=== PATIENT | male | born 1970 ===

== ENCOUNTER 2025-02-09 14:08 | Outpatient (REF) | payer OTHER, SELFPAY ==
--- NOTE | ~2025-02-09 | XR_ITS ---
Exam: Three-view bilateral hands. TECHNIQUE: AP, oblique, lateral upper extremity bilateral INDICATION: Pain No prior FINDINGS: Right hand: Joint spaces are preserved. There are no osteophytes. There is a bilobed calcification adjacent to the ulnar aspect of the first metacarpal head. No other soft tissue calcific lesions are present. There is no joint diastases. Left hand: Joint spaces are preserved. There are no osteophytes. 2 Short linear densities are present in the soft tissues ulnar to the fifth metacarpal neck. There is focal rounded osteopenia in the radial side of the lunate. XR/XR Hand Bilat min 3v Impression: Right hand: Suspected calcific tendinitis involving the radial collateral ligament of the thumb with bilobed calcific density adjacent to the metacarpal head. Left hand: There is focal rounded osteopenia involving the radial aspect of lunate. Erosive change from an etiology such as rheumatoid arthritis is not ruled out. However, there are no other changes to suggest an inflammatory arthropathy. This could also represent a degenerative cyst. Electronically signed by: Lio Moreno MD 02/09/2025 04:08 PM EDT
== END 2025-02-09 14:09 | disposition home or self-care (01) ==
LOC: HO.HOSX 14:08
PROVIDERS: PCP Internal Medicine
DX: M65.341 Trigger finger, right ring finger (principal); M65.332 Trigger finger, left middle finger; M89.8X4 Other specified disorders of bone, hand
CPT/HCPCS: 20550; 73130; 99202; J1100; J2003

== ENCOUNTER 2025-02-09 14:08 | Outpatient (AMB) | payer OTHER, SELFPAY ==
--- NOTE | 2025-02-09 14:12 | A.OFFVIS_ITS ---
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 Patient was referred by his PCP Cesar Jones MD on 01/03/25 from [facility]. Patient states nothing was done for the pain, takes Tylenol as needed. 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 Patient states that the pain is in the wrist and goes to the fingers,no tingle or numbness. He states the pain is a quick jolt of pain. INTERP Needed. 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 Patient was referred by his PCP Cesar Jones MD on 01/03/25 from [facility]. Patient states nothing was done for the pain, takes Tylenol as needed. 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 Patient states that the pain is in the wrist and goes to the fingers,no tingle or numbness. He states the pain is a quick jolt of pain. The patient states that he has locking and catching of the right ring finger in the left middle finger. INTERP Needed. 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 Neuro: Normal sensation of the tips of all digits of the bilateral hand at this time Vascular: Cap refill brisk Pain: No Tenderness to palpation anywhere about the bilateral hands or wrists No discomfort with range of motion ROM: Patient is able to flex and extend all digits of the bilateral hands fully and without difficulty in the office today, but does report locking and catching of the right ring and left middle fingers on a regular basis that is very painful Skin: No lacerations or abrasions. General: No ecchymosis, erythema, or evidence of infection. Psych: Appears grossly normal Affect normal Attitude cooperative Office Procedures AMB Tendon Injection Tendon Injection [id number] Tendon Sheath Injection All charges added?: Procedure code (CPT) selection complete Assessment & Plan Assessment & Plan (1) Trigger finger, right ring finger: Code(s): M65.341 - Trigger finger, right ring finger Category: Medical (2) Trigger finger, left middle finger: Code(s): M65.332 - Trigger finger, left middle finger Category: Medical Plan 1. Trigger finger, right ring finger Patient would like to proceed with steroid injection at this time The risks and benefits of a steroid injection including but not limited to risk of damage to blood vessels, nerves, tendons, infection, skin bleaching, failure to improve symptoms, increased pain, and possible need for further injections or other intervention were discussed with the patient and the patient wishes to proceed with the steroid injection. Once consent was obtained, I sterilely prepped the area over the A1 nora of the flexor tendon sheath of the right ring finger. I then injected the flexor tendon sheath with a combination of 1 mL of dexamethasone (4mg/ml), and 1% lidocaine. The patient tolerated the procedure well with no complications. If the patient continues to have locking and catching 4-6 weeks following this injection, they may call to schedule appointment to discuss alternative treatment options Follow-up prn Orders: Orders XR Hand Bilat min 3v Today M79.643 - Pain in unspecified hand Coding Level of Care Code New Pt Level 3 (42158) Diagnoses Trigger finger, right ring finger M65.341 Trigger finger, left middle finger M65.332 CPT Codes Tendon Injection - Tendon Injection 1: [id number] Tendon Sheath Injection ([id number])
[2025-02-09 14:24] VITALS: BMI 30.1
--- OUTSIDE RECORDS SUMMARY | 2025-02-09 16:43 | XMS_ITS | Clinical Summary ---
Author Organization [employer] Address [address] [place] [address] Care Team Providers Care Correction Officer Reformatory Name Role Phone Cesar Drummond MD Primary Care Prov ider Allergies No known active allergies Medications lisinopril (Prinivil) 20 MG tablet Take 1 tablet (20 mg) by mouth Once per day. 90 tablet 3 01/03/2025 Active hydroCHLOROthiaz el (HYDRODiuril) 25 MG tablet Take 1 tablet (25 mg) by mouth Once per day. 90 tablet 3 01/03/2025 Active Blood Pressure kit 1 kit Once per day. 1 kit 01/03/2025 Active Active Problems Problem Noted Date Diagnosed Date Encounter for medical examination to establish c are 01/03/2025 Assessment & Plan (01/03/2025 2:04 PM EDT): Last pcp visit > 2yrs ER visit :- Hospitalization:- Pmhx:hypertension Pshx: - All: shrimp Meds: lisinopril 20mg, hydrochlorothiazide 25mg Colonoscopy and endoscopy done on 2023 at [facility] Primary hypertension 01/03/2025 Assessment & Plan (01/03/2025 2:08 PM EDT): On lisinopril and hydrochlorothiazide, will send bp monitor, keep bp log, keep low sodium diet and exercise as tolerated Trigger middle finger of right hand 01/03/2025 Assessment & Plan (01/03/2025 2:09 PM EDT): Will refer to hand surgery for evaluation Encounters Date Type Department Care Team Description 01/03/2025 1:45 PM EDT Telemedicine [facility] [address] [place] [address] Cesar Drummond MD Encounter for medical examination to establish care (Primary Dx); Screening for colon cancer; Primary hypertension; Trigger middle finger of right hand 01/03/2025 Travel 12/22/2024 Telephone [facility] MEDICINE [address], [place] [phone] Aj Hedrick MD New Patient appt. from Last 3 Months Family History Medical History Relation Name Comments Heart attack Father Thyroid disease Mother Cancer Mother's Sister Relation Name Status Comments Father Mother Mother's Sister Social History Tobacco Use Types Packs/Day Years Used Date Smoking Tobacco: Never Smokeless Tobacco: Never Tobacco Cessation:Counseling Given: Not Answered Alcohol Use Standard Drinks/Week Comments Yes 0 (1 standard drink = 0.6 oz pur e alcohol) social beer Sex and Gender Information Value Date Recorded Sex Assigned at Male 01/02/2025 2:49 PM EDT Legal Sex Male 3:55 PM EDT Gender Identity Male 01/02/2025 2:49 PM EDT Sexual Orientation Don't know 01/02/2025 2: 49 PM EDT Plan of Treatment Upcoming Encounters Date Type Department Care Team (Late st Contact Info) Description 04/05/2025 3:15 PM EDT Office Visit [facility] [address] [place] [address] Cesar Drummond MD [address] [place] [address] Health Maintenance Due Date Last Done Comments CT Colonography 1972 Colonoscopy 1972 Depression Screening 1972 FIT 1972 FOBT 1972 HIV Screening 1972 Lipid Panel 1972 SDOH Screening 1972 Sigmoidoscopy 1972 Disability Screening 1972 Alcohol/Substance Use Screening 1984 Family Planning (PISQ) 1987 Hepatitis C Screening 1990 DTaP/Tdap/Td Vaccines (1 - Tdap) 1991 Hepatitis B Vaccines (1 of 3 - 19+ 3-dose series) 1991 Pneumococcal Vaccine: 50+ Ye ars (1 of 1 - PCV) 2022 Zoster Vaccines (1 of 2) 2022 COVID-19 Vaccine ( - 2023-2 5 season) 2024 Influenza Vaccine (Season Ended) 2025 Tobacco Screening 01/03/2026 01/03/2025 Colorectal Cancer Screening 01/22/2028 FIT DNA/Cologuard 01/22/2028 01/21/2025 RSV Patients and Pa tients Aged 60 years or older (1 - 1-dose 75+ series) 2047 HIB Vaccines Aged Out No longer eligi ble based on patient's age to complete this topic HPV Vaccines Aged Out No longer eligi ble based on patient's age to complete this topic Hepatitis A Vaccines Aged Out No long er eligible based on patient's age to complete this topic IPV Vaccines Aged Out No longer eligi ble based on patient's age to complete this topic Meningococcal B Vaccine Aged Out No l onger eligible based on patient's age to complete this topic Meningococcal Vaccine Aged Out No arash spring eligible based on patient's age to complete this topic RSV under 20 months Aged Out No longe r eligible based on patient's age to complete this topic Rotavirus Vaccines Aged Out No longer eligible based on patient's age to complete this topic Procedures Procedure Name Priority Date/Time Associated Diagnosis Comments LAB COLOGUARD?? COLON CANCER SCREEN Routine 01/21/2025 9:40 AM EDT Screening for colon cancer LAB COLOGUARD?? COLON CANCER SCREEN- Unsuccessful Attempt Routine 01/11/2025 12:30 AM EDT Screening for colon cancer from Last 3 Months Results * (ABNORMAL) Cologuard?? colon cancer screening (01/21/2025 9:40 AM EDT) Only the most recent of2 resultswithin the time period is included. Cologuard Result Positive( A) Negative 01/26/2025 5:14 AM EDT [facility] (CLIA #:[id number]) Comment: The Cologuard (TM) test was performed on this specimen. POSITIVE TEST RESULT. A positive Cologuard result should be followed with a colonoscopy or visual examination of the colon. The normal value (reference range) for this assay is negative. TEST DESCRIPTION: Composite algorithmic analysis of stool DNA-biomarkers with hemoglobin immunoassay. ?? Quantitative values of individual biomarkers are not reportable and are not associated with individual biomarker result reference ranges. Cologuard is intended for colorectal cancer screening of adults of either sex, 45 years or older, who are at average-risk for colorectal cancer (CRC). Cologuard has been approved for use by the U.S. FDA. The performance of Cologuard was established in a cross sectional study of average-risk adults aged 50-84. Cologuard performance in patients ages 45 to 49 years was estimated by sub-group analysis of near-age groups. Colonoscopies performed for a positive result may find as the most clinically significant lesion: colorectal cancer [4.0%], advanced adenoma (including sessile serrated polyps greater than or equal to 1cm diameter) [20%] or non- advanced adenoma [31%]; or no colorectal neoplasia [45%]. These estimates are derived from a prospective cross-sectional screening study of 10,000 individuals at average risk for colorectal cancer who were screened with both Cologuard and colonoscopy. (Nikole Song. et al, N Engl J Med 2014;370(14):1010-1236.) Cologuard may produce a false negative or false positive result (no colorectal cancer or precancerous polyp present at colonoscopy follow up). A negative Cologuard test result does not guarantee the absence of CRC or advanced adenoma (pre-cancer). The current Cologuard screening interval is every 3 years. ([place] [employer] Society and U.S. Multi-Society Task Force). Cologuard performance data in a 10,000 patient pivotal study using colonoscopy as the reference method can be accessed at the following location: www.[email or web address].com/results. Additional description of the Cologuard test process, warnings and precautions can be found at www.cologuard.com. Stool specimen (specimen) Rectal contents / Unknown 01/21/2025 9:40 AM EDT 01/22/2025 10:27 PM EDT Cesar Jones MD LAB MOLECULAR DIAG NOSTICS ORDERABLES Final Result [facility] (CLIA #:[id number]) [address] [place] [address], from Last 3 Months Insurance [facility] PLAN Care Teams Correction Officer Reformatory Relationship Specialty Start Date End Date Cesar Drummond MD [address] [place] [phone] PCP - General Internal Medicine 01/03/25
== END 2025-02-09 15:10 | disposition home or self-care (01) ==
LOC: HO.HOS 14:09
PROVIDERS: PCP Internal Medicine
DX: M65.341 Trigger finger, right ring finger (principal); M65.332 Trigger finger, left middle finger
CPT/HCPCS: 20550; 99203

== ENCOUNTER → 2025-02-09 14:15 | Outpatient (BNV) | payer OTHER, SELFPAY | PROVIDERS: PCP Internal Medicine; Visit Provider Radiology Diagnostic Radiology | DX: M79.641 Pain in right hand (principal); M79.642 Pain in left hand | CPT/HCPCS: 73130 ==

== ENCOUNTER 2025-03-10 14:48 | Outpatient (AMB) | payer OTHER, SELFPAY ==
--- OUTSIDE RECORDS SUMMARY | 2025-03-10 14:51 | XMS_ITS | Clinical Summary ---
Author Organization [facility] Address [address] [place] [address] Phone Care Team Providers Care Mobile Home Laborer Name Role Phone Physician, Pcp Unknown Primary Care Provider Sandee vailable Allergies No known active allergies Encounters Date Type Department Care Team Description 02/13/2025 4:47 PM EDT - 02/14/2025 1:53 AM EDT Emergency [facility] Emergency [address] [place] [address] Discharge Disposition: Left Against Medical Advice from Last 3 Months Medical History Medical History Date Comments Hypertension Social History Tobacco Use Types Packs/Day Years Used Date Smoking Tobacco: Never Assessed Sex and Gender Information Value Date Recorded Sex Assigned at Not on file Legal Sex Male 4:46 PM EDT Gender Identity Not on file Sexual Orientation Not on file Obstetrics History Last Filed Vital Signs Vital Sign Reading Time Taken Comments Blood Pressure 136/88 02/13/2025 11:41 PM EDT Pulse 62 02/13/2025 11:41 PM EDT Temperature 36.7 C (98.1 F) 02/13/2025 11:41 PM EDT Respiratory Rate 18 02/13/2025 11:41 PM EDT Oxygen Saturation 100% 02/13/2025 11:41 PM EDT Inhaled Oxygen Concentration - - Weight 89.8 kg (198 lb) 02/13/2025 5:18 PM EDT Height 172.7 cm (5' 8 ) 02/13/2025 5:18 PM EDT Body Mass Index 30.11 02/13/2025 5:18 PM EDT Plan of Treatment Health Maintenance Due Date Last Done Comments DTaP,Tdap,and Td Vaccines (1 - Tdap) 1991 Hepatitis B Vaccines (1 of 3 - 19+ 3-dose series) 1991 Pneumococcal Vaccine: 50+ Ye ars (1 of 1 - PCV) 2022 Zoster Vaccines (1 of 2) 2022 COVID-19 Vaccine (1 - 2023-2 5 season) 2024 Cholesterol Screening (Lipid Panel) 02/14/2025 Colorectal Cancer Screening: Colonoscopy 02/14/2025 Depression Screening 02/14/2025 HIV Screening 02/14/2025 Hepatitis C Screening 02/14/2025 Social Influencers of Health Screening 02/14/2025 Influenza Vaccine (#1) 2025 HIB Vaccines Aged Out No longer eligi [...] on patient's age to complete this topic MMR Vaccines Aged Out No longer eligi ble based on patient's age to complete this topic Meningococcal ACWY Vaccine Aged Out N o longer eligible based on patient's age to complete this topic Meningococcal B Vaccine Aged Out No l onger eligible based on patient's age to complete this topic RSV Immunization Patients Un wilian 20 months Aged Out No longer eligible b ased on patient's age to complete this topic Varicella Vaccines Aged Out No longer eligible based on patient's age to complete this topic Procedures Procedure Name Priority Date/Time Associated Diagnosis Comments XR HAND 3+ VIEWS LEFT STAT 02/13/2025 6:52 PM EDT CBC WITH AUTO DIFFERENTIAL STAT 02/13/2025 6:01 PM EDT LACTATE, WITH REFLEX STAT 02/13/2025 6:01 PM EDT BASIC METABOLIC PANEL STAT 02/13/2025 6:01 PM EDT CBC AND DIFFERENTIAL STAT 02/13/2025 6:01 PM EDT CULTURE BLOOD STAT 02/13/2025 6:01 PM EDT CULTURE BLOOD STAT 02/13/2025 6:01 PM EDT from Last 3 Months Results * XR Hand 3+ Views Left (02/13/2025 6:52 PM EDT) Anatomical Region Laterality Modality Upper Extremities, Hand [facility] 02/14/2025 8:32 AM EDT Impressions 02/14/2025 8:33 AM EDT FINDINGS/IMPRESSION: Soft tissue swelling at the distal aspect of the 2nd finger with cortical erosion at the distal tuft of the 2nd distal phalanx suspicious for osteomyelitis. No acute fracture or dislocation. Small punctate radiodensities along the ulnar aspect of the 5th metacarpal head may represent small foreign bodies. -------- FINAL REPORT -------- Dictated By: OHLLAND KAYE Dictated Date: 02/14/2025 08:32 ET Assigned Physician: HOLLAND KAYE Reviewed and Electronically Signed By: HOLLAND KAYE Signed Date: 02/14/2025 08:33 ET Workstation ID: [id number] Transcribed By: Self Edit Transcribed Date: 02/14/2025 08:32 ET Narrative 02/14/2025 8:33 AM EDT XR HAND 3+ VIEWS LEFT INDICATION: Pain TECHNIQUE: XR HAND 3+ VIEWS LEFT COMPARISON: No priors available. Procedure Note Holland Kaye MD - 02/14/2025 XR HAND 3+ VIEWS LEFT INDICATION: Pain TECHNIQUE: XR HAND 3+ VIEWS LEFT COMPARISON: No priors available. IMPRESSION: FINDINGS/IMPRESSION: Soft tissue swelling at the distal aspect of the 2ndfinger with cortical erosion at the distal tuft of the 2nd distal phalanxsuspicious for osteomyelitis. No acute fracture or dislocation. Smallpunctate radiodensities along the ulnar aspect of the 5th metacarpal headmay represent small foreign bodies. -------- FINAL REPORT -------- Dictated By: HOLLAND KAYE Dictated Date: 02/14/2025 08:32 ET Assigned Physician: HOLLAND KAYE Reviewed and Electronically Signed By: HOLLAND KAYE Signed Date: 02/14/2025 08:33 ET Workstation ID: [id number] Transcribed By: Self Edit Transcribed Date: 02/14/2025 08:32 ET Turner Hobson DO IMG XR PROCEDURES Final Result * Lactate, with reflex (02/13/2025 6:01 PM EDT) [facility] LACTIC ACID 1.1 0.4 - 2.0 mmol/L LAB CHEMISTRY METHOD 02/13/2025 6:40 PM EDT [facility] Blood Venous blood specimen / Unknown Venipuncture / Unknown 02/13/2025 6:01 PM EDT 02/13/2025 6:10 PM EDT Turner Hobson DO LAB BLOOD ORDERABLES Final Res ult [facility] [address] [place] [address], [place] [phone] * (ABNORMAL) CBC auto differential (02/13/2025 6:01 PM EDT) [facility] WBC 9.6 4.8 - 10.8 K/mcL LAB HEMETOLOGY METHOD 02/13/2025 6:19 PM EDT [facility] RBC 5.20 4.50 - 5.50 M/mcL LAB HEMETOLOGY METHOD 02/13/2025 6:19 PM EDT [facility] Hemoglobin 14.5 13.5 - 17.5 g/dL LAB HEMETOLOGY METHOD 02/13/2025 6:19 PM EDT [facility] Hematocrit 46.1 42.0 - 54.0 % LAB HEMETOLOGY METHOD 02/13/2025 6:19 PM EDT [facility] MCV 88.7 79.0 - 98.0 FL LAB HEMETOLOGY METHOD 02/13/2025 6:19 PM EDT [facility] MCH 27.9 27.0 - 32.0 pcg LAB HEMETOLOGY METHOD 02/13/2025 6:19 PM EDT [facility] MCHC 31.5(L) 32.0 - 37.0 g/dL LAB HEMETOLOGY METHOD 02/13/2025 6:19 PM [facility] RDW 13.8 11.0 - 15.0 % LAB HEMETOLOGY METHOD 02/13/2025 6:19 PM [facility] Platelets 364 130 - 400 K/mcL LAB HEMETOLOGY METHOD 02/13/2025 6:19 PM [facility] MPV 8.7 7.0 - 11.0 FL LAB HEMETOLOGY METHOD 02/13/2025 6:19 PM [facility] NRBC 0.0 <1.0 % LAB HEMETOLOGY METHOD 02/13/2025 6:19 PM [facility] NRBC Absolute 0.00 <0.10 K/mcL LAB HEMETOLOGY METHOD 02/13/2025 6:19 PM [facility] Neutrophils Relative 55.4 % LAB HEMETOLOGY METHOD 02/13/2025 6:19 PM [facility] Lymphocytes Relative 33.8 % LAB HEMETOLOGY METHOD 02/13/2025 6:19 PM [facility] Monocytes Relative 7.3 % LAB HEMETOLOGY METHOD 02/13/2025 6:19 PM [facility] Eosinophils Relative 2.7 % LAB HEMETOLOGY METHOD 02/13/2025 6:19 PM [facility] Basophils Relative 0.5 % LAB HEMETOLOGY METHOD 02/13/2025 6:19 PM [facility] Immature Granulocytes Relative 0.3 % LAB HEMETOLOGY METHOD 02/13/2025 6:19 PM [facility] Neutrophils Absolute 5.32 1.50 - 7.00 K/mcL LAB HEMETOLOGY METHOD 02/13/2025 6:19 PM [facility] Lymphocytes Absolute 3.24 1.00 - 5.00 K/mcL LAB HEMETOLOGY METHOD 02/13/2025 6:19 PM EDT [facility] Monocytes Absolute 0.70 0.20 - 1.00 K/[facility] LAB HEMETOLOGY METHOD 02/13/2025 6:19 PM EDT [facility] Eosinophils Absolute 0.26 0.00 - 0.50 K/[facility] HEMETOLOGY METHOD 02/13/2025 6:19 PM EDT [facility] Basophils Absolute 0.05 0.00 - 0.20 K/[facility] HEMETOLOGY METHOD 02/13/2025 6:19 PM EDT [facility] Immature Granulocytes Absolute 0.03 0.00 - 0.03 K/[facility] HEMETOLOGY METHOD 02/13/2025 6:19 PM EDT [facility] Blood Venous blood specimen / Unknown Venipuncture / Unknown 02/13/2025 6:01 PM EDT 02/13/2025 6:09 PM EDT Turner Hobson DO LAB BLOOD ORDERABLES Final Res ult [facility] [address] [place] [address], [place] [phone] * Blood Culture, Peripheral Draw #2 (02/13/2025 6:01 PM EDT) Only the most recent of2 resultswithin the time period is included. Culture, Blood No growth at 5 days 02/18/2025 7:01 PM EDT [facility] Blood Venous blood specimen / Unknown Venipuncture / Unknown 02/13/2025 6:01 PM EDT 02/13/2025 6:09 PM EDT Turner Hobson DO LAB MICROBIOLOGY - GENERAL ORD ERABLES Final Result [facility] [address] [place] [address], [place] [phone] * (ABNORMAL) Basic metabolic panel (02/13/2025 6:01 PM EDT) Sodium 136 133 - 145 mmol/L LAB CHEMISTRY METHOD 02/13/2025 6:41 PM [facility] Potassium 4.2 3.5 - 5.5 mmol/L LAB CHEMISTRY METHOD 02/13/2025 6:41 PM [facility] Chloride 104 96 - 110 mmol/L LAB CHEMISTRY METHOD 02/13/2025 6:41 PM [facility] CO2 29 21 - 32 mmol/L LAB CHEMISTRY METHOD 02/13/2025 6:41 PM [facility] Anion Gap 3 3 - 11 LAB CHEMISTRY METHOD 02/13/2025 6:41 PM [facility] Glucose 93 70 - 100 mg/dL LAB CHEMISTRY METHOD 02/13/2025 6:41 PM [facility] BUN 16 5 - 25 mg/dL LAB CHEMISTRY METHOD 02/13/2025 6:41 PM [facility] Creatinine 1.31(H) 0.70 - 1.30 mg/dL LAB CHEMISTRY METHOD 02/13/2025 6:41 PM [facility] eGFR 65 >=60 mL/min/1. 73m2 LAB CHEMISTRY METHOD 02/13/2025 6:41 PM [facility] Comment:Calculation based on the Chronic Kidney Disease Epidemiology Collaboration (CKD-EPI) equation refit without adjustment for race. BUN/Creatinine Ratio 12.2 LAB CHEMISTRY METHOD 02/13/2025 6:41 PM [facility] Calcium 9.6 8.5 - 10.5 mg/dL LAB CHEMISTRY METHOD 02/13/2025 6:41 PM [facility] Blood Venous blood specimen / Unknown Venipuncture / Unknown 02/13/2025 6:01 PM EDT 02/13/2025 6:10 PM EDT us Turner Hobson DO LAB BLOOD ORDERABLES Final Res ult [facility] [address] [place] [address], [place] [phone] from Last 3 Months Insurance [facility] [employer] Care Teams Mobile Home Laborer Relationship Specialty Start Date End Date Physician, Pcp Unknown PCP - General 02/14/25
[2025-03-10 14:54] VITALS: BMI 30.1
--- NOTE | 2025-03-10 14:54 | MHC.OFFVIS ---
Vital Signs 03/10/25 14:54 Height 5 ft 8 in Weight 198 lb BMI 30.1 Intake Visit Reasons: Inj- Left middle finger trigger injection Intake Note: Tone is a 54 year old right hand dominant female who presents today for a left middle trigger finger injection. Lay Up Operator Required: Yes Lay Up Operator Language: Sales And Catering Coordinator Services: Lay Up Operator Present Lay Up Operator Name: Mariama RMA/LM Allergies No Known Allergies Allergy (Verified 03/10/25 15:04) HPI HPI Inj- Left middle finger trigger injection: Details: Tone is a 54 year old right hand dominant female who presents today for a left middle trigger finger injection. Patient reports that the previous injection in his right ring finger has given him total relief. 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 Trigger finger, left middle finger The risks and benefits of a steroid injection including but not limited to risk of damage to blood vessels, nerves, tendons, infection, skin bleaching, failure to improve symptoms, increased pain, and possible need for further injections or other intervention were discussed with the patient and the patient wishes to proceed with the steroid injection. Once consent was obtained, I sterilely prepped the area over the A1 nora of the flexor tendon sheath of the left middle finger. I then injected the flexor tendon sheath with a combination of 1 mL of dexamethasone (4mg/ml), and 1% lidocaine. The patient tolerated the procedure well with no complications. If the patient continues to have locking and catching 4-6 weeks following this injection, they may call to schedule appointment to discuss alternative treatment options Follow-up prn Coding Level of Care Code Procedure Only Diagnoses Trigger finger, right ring finger M65.341 Trigger finger, left middle finger M65.332 CPT Codes Tendon Injection - Tendon Injection 1: [id number] Tendon Sheath Injection ([id number])
== END 2025-03-10 15:14 | disposition home or self-care (01) ==
LOC: HO.HOS 14:49
PROVIDERS: PCP Internal Medicine
DX: M65.341 Trigger finger, right ring finger (principal); M65.332 Trigger finger, left middle finger
CPT/HCPCS: 20550

== ENCOUNTER → 2025-03-10 14:48 | Outpatient (BNVA) | payer OTHER, SELFPAY | PROVIDERS: PCP Internal Medicine | DX: M65.332 Trigger finger, left middle finger (principal) | CPT/HCPCS: 20550; J1100; J2003 ==

== ENCOUNTER 2025-03-15 08:04 | Outpatient (REF) | payer OTHER, SELFPAY ==
[2025-03-15 10:16] LABS: MANUAL DIFF FLAG NO
[2025-03-15 10:32] LABS: Hematocrit 42.9 % (42.0-52.0); Hemoglobin 14.1 g/dl (14.0-18.0); Imm Gran Abs Auto 0.01 X10*3/uL (0.00-0.03); Imm Gran Pct Auto 0.2 % (0.0-0.4); Lymphocytes Absolute Auto 2.8 X10*3/uL (1.2-4.9); Mean Corpuscular HGB Conc 32.9 g/dl (31.0-36.0); Mean Corpuscular Hemoglobin 28.4 pg (27.0-33.0); Mean Corpuscular Volume 86.5 fL (80.0-98.0); NRBC Abs Auto 0.000 X10*3/uL (0.0-0.012); NRBC Pct Auto 0.0 /100WBC (0.0-0.2); Platelet Count 338 X10*3/uL (160-400); Red Blood Count 4.96 X10*6/uL (4.60-5.80); White Blood Count 6.4 X10*3/uL (4.8-10.8)
[2025-03-15 10:39] LABS: Hemoglobin A1C 139.2518 umol/L; Total Hemoglobin (HGBA1C) 3699.3460 umol/L
[2025-03-15 11:03] LABS: Alanine Aminotransferase 42 U/L (0-40); Albumin Level 4.6 g/dL (3.5-5.0); Alkaline Phosphatase 67 U/L (39-117); Anion Gap 8 (12-20); Aspartate Amino Transferase 36 U/L (5-37); Blood Urea Nitrogen 11 mg/dL (9-16); Calcium 9.4 mg/dL (8.4-10.2); Carbon Dioxide 28 mmol/L (22-29); Chloride 107 mmol/L (96-108); Cholesterol 161 mg/dL (<200); Estimated Glomerular Filt Rate 58; HDL Cholesterol 30 mg/dL (>40); Potassium 5.3 mmol/L (3.3-5.1); Sodium 138 mmol/L (135-145); Total Protein 7.7 g/dL (6.5-8.0); Triglycerides 118 mg/dL (<150)
[2025-03-15 11:31] LABS: HIV Num 1 0.09 S/CO (0.00-0.99); ~HepC Num1 0.15 S/CO (0.00-0.79); ~Hepatitis C Antibody Nonreactive (Nonreactive)
== END 2025-03-15 08:05 | disposition home or self-care (01) ==
LOC: HO.CHCLDS 08:04
PROVIDERS: Visit Provider Internal Medicine
DX: I10 Essential (primary) hypertension (principal)
CPT/HCPCS: 36415; 80053; 80061; 83036; 84443; 85025; 86803; 87389

== ENCOUNTER 2025-06-15 09:32 | Outpatient (AMB) | payer OTHER, SELFPAY ==
--- NOTE | 2025-06-15 09:47 | MHC.OFFVIS ---
Vital Signs 06/15/25 09:54 Height 5 ft 8 in Weight 200 lb 2.876 oz BMI 30.4 BP 144/84 H Blood Pressure Location Rt brachial Position Sitting Pulse 80 Intake Visit Reasons: Positive Cologuard Intake Note: New patient in office today for colonoscopy screening ( s/p cologuard). CC: Patient c/o a lot of gas and diarrhea sometimes. He states that when he first arrived the the [place] about a year ago, he would feel nauseous and vomit after eating, but that resolved already. Segment Assembler Required: Yes Segment Assembler Language: Nauruan Accompanied by: Self / Same As Patient Allergies No Known Allergies Allergy (Verified 06/15/25 10:05) HPI HPI Positive Cologuard: Details: 55-year-old female here for preprocedural meeting to discuss a screening colonoscopy in the context of having a positive Cologuard. She is referred by [facility]. PMX Hypertension * SURGICAL HISTORY * ALLERGIES:NKDA * Mail'[employer] LABS: Laboratory Tests 03/15/25 08:06 WBC 6.4 Hgb 14.1 Hct 42.9 Plt Count 338 Estimated GFR 58 Total Bilirubin 0.4 AST 36 ALT 42 H Alkaline Phosphatase 67 TSH 1.24 TODAY'S VISIT [place] #Sheila LIVE He had a prior colonoscopy in the [place] but is uncertain of the findings. Bowel or upper GI problems: He was having N/V/D which is why he had the 2 procedures, this has largely subsided after he changed his diet to avoid greasy foods spicy foods and an excess of coffee. Cardiac or respiratory problems: no Problems with anesthesia or sedation:no Infectious disease problems: No Family history: No PFSH Surgical History (Updated 06/15/25 @ 09:59 by KAREN Chávez) History of esophagogastroduodenoscopy (EGD) S/P colonoscopy Family History (Updated 06/15/25 @ 10:00 by KAREN Chávez) Maternal Aunt Cancer Family/Other Breast cancer Family/Other Cancer Social History (Updated 06/15/25 @ 10:02 by Monika Pak [facility] Alcohol intake: current Alcohol intake frequency: a few times a month Alcohol type: beer Patient Tobacco Use Status: Former Tobacco user Non Cigarette Tobacco use how lon years Current occupational status: employed 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 Review of Systems Const Denies fatigue, Denies fever(s), Denies night sweats, Denies poor appetite and Denies weight loss ENT Reports Normal hearing present, Denies dental pain, Denies dysphagia, Denies hearing loss, Denies mouth pain, Denies odynophagia, Denies throat swelling, Denies tongue swelling and Reports other (Dentition adequate) Card Reports no additional complaints Resp Reports no additional complaints GI Details: Denies abdominal pain, Denies melena, Denies bloating, Denies hematochezia, Denies constipation, Denies GI cramping, Denies dysphagia, Denies excessive flatus, Denies early satiety, Denies heartburn, Denies diarrhea, Denies nausea, Denies odynophagia, Denies vomiting and Denies hematemesis Skin/Breast Denies pruritus, Denies lesions, Denies rash and Denies jaundice Neuro Reports Normal hearing present and Denies Abnormal speech present Endo Denies fatigue Aller/Immun Denies throat swelling and Denies tongue swelling Physical Exam Vital Signs: Last Vital Signs Pulse 80 06/15/25 09:54 BP 144/84 H 06/15/25 09:54 BMI result Body Mass Index 30.4 Const General: cooperative, no acute distress, well developed and well groomed Nutritional Appearance: average body habitus and well nourished Orientation/consciousness: oriented to person, oriented to place and oriented to time Limitations: language barrier HEENT Head: Yes normocephalic and Yes atraumatic Eyes General: appearance normal, both eyes and all related structures Pupils: Equal, round and reactive pupils present Neck Neck: Yes normal visual inspection and Yes no lymphadenopathy Thyroid: Thyroid normal Resp Effort & Inspection: normal respiratory effort and able to speak in complete sentences Auscultation: clear to auscultation bilaterally Cardio Rate: regular rate Rhythm: regular rhythm Heart sounds: Normal, physiologic split S2 sound present Peripheral pulses: radial pulses present and posterior tibial pulses present GI Inspection: No distended and No Abdominal panniculus present Palpation (GI): Soft to palpation, nontender, no guarding, not rigid and No hepatosplenomegaly present Percussion: Yes normal to percussion Auscultation: normal bowel sounds Rectal Exam - Male: Yes deferred Skin General skin exam: no rashes or lesions noted, turgor normal, skin not dry, no jaundice, No spider nevi and no striae Rashes: no rashes Nails: normal Neuro General: oriented to person, oriented to place and oriented to time Cranial nerves: Yes Equal, round and reactive pupils present and Yes Normal hearing present Speech: No Abnormal speech present Extrem General: Yes normal to inspection, No clubbing, No cyanosis and No edema Psych Appearance: grossly normal and well kempt Mental Status: mental status grossly normal Speech and movement: Normal speech and movement present Affect: normal affect Attitude: cooperative Thought process: Normal thought process present and not confabulating Thought content: Normal thought content present Insight: Fair insight present (Psych) Judgement: Fair judgement present (Psych) Assessment & Plan Assessment & Plan (1) Positive colorectal cancer screening using Cologuard test: Code(s): R19.5 - Other fecal abnormalities Category: Medical (2) Pre-op examination: Code(s): Z01.818 - Encounter for other preprocedural examination Category: Medical Plan [place] #tACHIRS LIVE He had a prior colonoscopy in the [place] but is uncertain of the findings. Bowel or upper GI problems: He was having N/V/D which is why he had the 2 procedures, this has largely subsided after he changed his diet to avoid greasy foods spicy foods and an excess of coffee. Cardiac or respiratory problems: no Problems with anesthesia or sedation:no Infectious disease problems: No Family history: No Orders: Referrals GI Procedure Notification R19.5 - Other fecal abnormalities, Z01.818 - Encounter for other preprocedural examination Medications: New sodium,potassium,mag sulfates 17.5-3.13-1.6 gram (Suprep Bowel Prep Kit) 480 mL orally; FOR COLONOSCOPY PREP 354 mL 0RF Coding Level of Care Code New Pt Level 3 (65812) Diagnoses Positive colorectal cancer screening using Cologuard test R19.5 Pre-op examination Z01.818
[2025-06-15 09:54] VITALS: BP 144/84; PULSE 80; BMI 30.4
--- OUTSIDE RECORDS SUMMARY | 2025-06-15 10:56 | XMS_ITS | Encounter Summary ---
Author Organization [employer] Address [address] [place] [address] Care Team Providers Care Serials Librarian Name Role Phone Cesar Drummond MD Primary Care Prov ider Encounter Details Date Type Department Care Team (Late st Contact Info) Description 02/10/2025 Orders Only C [facility] [address] [place] [address] Cesar Drummond MD [address] [place] [address] Social History Tobacco Use Types Packs/Day Years Used Date Smoking Tobacco: Never Smokeless Tobacco: Never Alcohol Use Standard Drinks/Week Comments Yes 0 (1 standard drink = 0.6 oz pur e alcohol) social beer Sex and Gender Information Value Date Recorded Sex Assigned at Male 01/02/2025 2:49 PM EDT Legal Sex Male 3:55 PM EDT Gender Identity Male 01/02/2025 2:49 PM EDT Sexual Orientation Don't know 01/02/2025 2: 49 PM EDT documented as of this encounter Plan of Treatment Not on file documented as of this encounter Visit Diagnoses Not on filedocumented in this encounter Care Teams Serials Librarian Relationship Specialty Start Date End Date Cesar Drummond MD [address] [place] [address] PCP - General Internal Medicine 01/03/25 documented as of this encounter
--- OUTSIDE RECORDS SUMMARY | 2025-06-15 10:56 | XMS_ITS | Clinical Summary ---
Author Organization [employer] Address [address] [place] [address] Care Team Providers Care Food Safety Director Name Role Phone Cesar Drummond MD Primary Care Prov ider Allergies No known active allergies Medications Blood Pressure kit 1 kit Once per day. 1 kit 01/03/2025 Active cyclobenzaprine (Flexeril) 10 MG tablet Take 1 tablet (10 mg) by mouth 3 times daily for 10 days. 30 tablet 03/10/2025 Active amLODIPine (Norvasc) 10 MG tablet Take 1 tablet (10 mg) by mouth Once per day. 90 tablet 3 03/10/2025 Active Active Problems Problem Noted Date Diagnosed Date Tinea pedis of both feet 03/10/2025 Assessment & Plan (03/10/2025 9:32 AM EDT): Will order clotrimazole, keep feet dry Acute bilateral low back pain without sciatica 0 03/10/2025 Assessment & Plan (03/10/2025 9:33 AM EDT): Will start on cyclobenzaprine, avoid heavy lifting, rest, apply ice/heat, menthol base ointments, follow up as needed Hospital discharge follow-up 03/10/2025 Assessment & Plan (03/10/2025 9:45 AM EDT): Patient was admitted at [facility] from 02/14-02/17 due to osteomyelitis, discharged home to complete bactrim until 03/27. Patient has follow up with ID, will follow up reccomendations Screening for colon cancer 03/10/2025 Assessment & Plan (03/10/2025 9:46 AM EDT): Patient with positive cologuard test, refers has appointment with GI, given phone number to confirm, discussed importance of follow up Encounter for medical examination to establish c are 01/03/2025 Assessment & Plan (01/03/2025 2:04 PM EDT): Last pcp visit > 2yrs ER visit :- Hospitalization:- Pmhx:hypertension Pshx: - All: shrimp Meds: lisinopril 20mg, hydrochlorothiazide 25mg Colonoscopy and endoscopy done on 2023 at [facility] Primary hypertension 01/03/2025 Assessment & Plan (04/04/2025 4:26 PM EDT): Slightly above target, refers at home has remained on target <140/90, keep low sodium diet and exercise as tolerated, keep bp log, follow up in 3 months Assessment & Plan (03/10/2025 9:31 AM EDT): Controlled, was switched from fatuma/hydrochlorothiazide to amlodipine, no changes will be made, keep low sodium diet and exercise as tolerated, keep bp log, follow up in 3 months, new labs ordered Assessment & Plan (01/03/2025 2:08 PM EDT): On lisinopril and hydrochlorothiazide, will send bp monitor, keep bp log, keep low sodium diet and exercise as tolerated Trigger middle finger of right hand 01/03/2025 Assessment & Plan (01/03/2025 2:09 PM EDT): Will refer to hand surgery for evaluation Encounters Date Type Department Care Team Description 04/04/2025 3:15 PM EDT Office Visit [facility] [address] [place] [address] Cesar Drummond MD Primary hypertension (Primary Dx) 04/04/2025 Travel 03/29/2025 Patient Outreach [facility] [address] [place] [address] Cesar Drummond MD Pre-visit Planning (SDOH screening completed on 02/08/25) 03/15/2025 Telephone [facility] [address] [place] [address] Cesar Drummond MD ER Follow-up from Last 3 Months Immunizations Immunization Administration Dates Next Due Tdap 02/14/2025 Family History Medical History Relation Name Comments Heart attack Father Thyroid disease Mother Cancer Mother's Sister Relation Name Status Comments Father Mother Mother's Sister Social History Tobacco Use Types Packs/Day Years Used Date Smoking Tobacco: Never Smokeless Tobacco: Never Tobacco Cessation:Counseling Given: Not Answered Alcohol Use Standard Drinks/Week Comments Yes 0 (1 standard drink = 0.6 oz pur e alcohol) social beer Depression Answer Date Recorded Patient Health Questionnaire-9 Score 4 03/10/2025 Patient Health Questionnaire-9 Score 4 03/10/2025 Last PHQ-9: Questionnaire Data Not on file 0 03/10/2025 Housing Stability Answer Date Recorded What is your housing situation today? I have marychuyselvin charles 03/10/[address] you li ve. Do you have problems with any of the following? None of the above 03/10/2025 Food Insecurity Answer Date Recorded Within the past 12 months, y ou worried that your food would run out before you got money to buy more: Never True 03/10/2025 Within the past 12 months,th e food you bought just didn't last and you didn't have enough money to get more: Never True 07/2025 Transportation Answer Date Recorded In the past 12 months, has l ack of transportation kept you from medical appts, meetings, work or from getting things needed for daily living? No 03/10/2025 Utilities Answer Date Recorded In the past 12 months, has t he electric, gas, oil or water company threatened to shut off services in your home? No 03/10/2025 Depression Answer Date Recorded Patient Health Questionnaire-2 Score 2 03/10/2025 Internet Access Answer Date Recorded Internet Access Q1 Yes 03/10/2025 Internet Access Q2 Not on file 03/10/2025 Sex and Gender Information Value Date Recorded Sex Assigned at Male 01/02/2025 2:49 PM EDT Legal Sex Male 3:55 PM EDT Gender Identity Male 01/02/2025 2:49 PM EDT Sexual Orientation Don't know 01/02/2025 2: 49 PM EDT Last Filed Vital Signs Vital Sign Reading Time Taken Comments Blood Pressure 143/94 04/04/2025 2:55 PM EDT Pulse 80 04/04/2025 2:55 PM EDT Temperature 36.1 C (97 F) 04/04/2025 2:55 PM EDT Respiratory Rate 20 04/04/2025 2:55 PM EDT Oxygen Saturation - - Inhaled Oxygen Concentration - - Weight 84.4 kg (186 lb) 04/04/2025 2:55 PM EDT Height 172.7 cm (5' 8 ) 04/04/2025 2:55 PM EDT Body Mass Index 28.28 04/04/2025 2:55 PM EDT Plan of Treatment Health Maintenance Due Date Last Done Comments CT Colonography 1972 Colonoscopy 1972 FIT 1972 Sigmoidoscopy 1972 Disability Screening 1972 Hepatitis B Vaccines (1 of 3 - 19+ 3-dose series) 1991 Pneumococcal Vaccine: 50+ Years (1 of 1 - PCV) 2022 Zoster Vaccines (1 of 2) 2022 COVID-19 Vaccine (1 - 2023-2 5 season) 2025 Influenza Vaccine (#1) 2025 Tobacco Screening 01/03/2026 01/03/2025 FOBT 01/21/2026 01/21/2025 Alcohol/Substance Use Screening 03/10/2026 03/10/2025 Depression Screening 03/10/2026 03/10/2025, 03/10/2025 SDOH Screening 03/10/2026 03/10/2025 Colorectal Cancer Screening 01/22/2028 FIT DNA/Cologuard 01/22/2028 01/21/2025 Lipid Panel 03/15/2030 03/15/2025 DTaP/Tdap/Td Vaccines (2 - T d or Tdap) 02/14/2035 02/14/2025, 02/14/2025 RSV Patients and Patients Aged 60 years or older (1 - 1-dose 75+ series) 2047 HIV Screening Completed 03/15/2025 Hepatitis C Screening Completed 03/15/2025 HIB Vaccines Aged Out No longer eligi [...] Procedure Name Priority Date/Time Associated Diagnosis Comments HEPATITIS C AB W/REFL TO HCV RNA, QN, PCR Routine 03/15/2025 8:06 AM EDT Primary hypertension HIV 1/2 ANTIGEN/ANTIBODY, FOURTH GENERATION W/RFL Routine 03/15/2025 8:06 AM EDT Primary hypertension TSH W/REFLEX TO FT4 Routine 03/15/2025 8 :06 AM EDT Primary hypertension HEMOGLOBIN A1C Routine 03/15/2025 8:06 AM EDT Primary hypertension LIPID PANEL, STANDARD Routine 03/15/2025 8:06 AM EDT Primary hypertension COMPREHENSIVE METABOLIC PANEL Routine 03/15/2025 8:06 AM EDT Primary hypertension CBC WITH AUTO DIFFERENTIAL Routine 03/15/2025 8:06 AM EDT Primary hypertension LAB COLOGUARD COLON CANCER SCREEN Routine 01/21/2025 9:40 AM EDT Screening for colon cancer from Last 3 Months or Most Recently Relevant to Health Maintenance Results * TSH W/Reflex to FT4 (03/15/2025 8:06 AM EDT) TSH reflex Free T4 1.24 0.32 - 4.0 uIU/mL [facility] Blood Venous blood specimen / Unknown 03/15/2025 8:06 AM EDT 03/15/2025 10:13 AM EDT us Cesar Jones MD LAB BLOOD ORDERABL ES Final Result [facility] [address] [place] [phone] * (ABNORMAL) CBC auto differential (03/15/2025 8:06 AM EDT) White Blood Count 6.4 4.8 - 10.8 X10*3/uL [facility] Red Blood Count 4.96 4.60 - 5.80 X10*6/uL [facility] Hemoglobin 14.1 14.0 - 18.0 g/dl [facility] Hematocrit 42.9 42.0 - 52.0 % [facility] Mean Corpuscular Volume 86.5 80.0 - 98.0 fL [facility] Mean Corpuscular Hemoglobin 28.4 27.0 - 33.0 pg [facility] Mean Corpuscular HGB Conc 32.9 31.0 - 36.0 g/dl [facility] Red Cell Distribution Width 14.0 11.0 - 16.0 % [facility] Platelet Count 338 160 - 400 X10*3/uL [facility] Mean Platelet Volume 9.3(L) 9.4 - 12.4 fL [facility] Neutrophils Percent Auto 43.2(L) 45 - 73 % [facility] Imm Gran Pct Auto 0.2 0.0 - 0.4 % [facility] Lymphocytes Percent Auto 42.9(H) 20 - 40 % [facility] Monocytes Percent Auto 8.6 2 - 11 % [facility] Eosinophils Percent Auto 4.5(H) 0 - 4 % [facility] Basophils Percent Auto 0.6 0 - 2 % [facility] NRBC Pct Auto 0.0 0.0 - 0.2 /100WBC [facility] Neutrophils Absolute Auto 2.8 2.0 - 8.3 x10*3/uL [facility] Imm Gran Abs Auto 0.01 0.00 - 0.03 X10*3/uL [facility] Lymphocytes Absolute Auto 2.8 1.2 - 4.9 X10*3/uL [facility] Monocytes Absolute Auto 0.6 0.1 - 1.2 X10*3/uL [facility] Eosinophils Absolute Auto 0.3 0.0 - 0.4 X10*3/uL [facility] Basophils Absolute Auto 0.0 0.0 - 0.2 X10*3/uL [facility] NRBC Abs Auto 0.000 0.0 - 0.012 X10*3/uL [facility] Blood Venous blood specimen / Unknown 03/15/2025 8:06 AM EDT 03/15/2025 10:13 AM EDT Cesar Jones MD LAB BLOOD ORDERABL ES Final Result Performing Organization Address [facility] Co de Phone Number [facility] [address] [place] [phone] * Hepatitis C Antibody with Reflex to HCV, RNA, Quantitative, Real-Time PCR (03/15/2025 8:06 AM EDT) [facility] Hepatitis C Antibody Nonreactive Nonreactive [facility] Comment:Antibodies to HCV no t detected; does not exclude early acuteHCV infection. Blood Venous blood specimen / Unknown 03/15/2025 8:06 AM EDT 03/15/2025 10:13 AM EDT Cesar Jones MD LAB BLOOD ORDERABL ES Final Result Performing Organization Address [facility] Co de Phone Number [facility] [address] [place] [phone] * HIV-1/2 Antigen and Antibodies, Fourth Generation, with Reflexes (03/15/2025 8:06 AM EDT) HIV AB/AG Nonreactive Nonreactive [facility] Comment:HIV-1 p24 Ag and/or HIV-1/HIV-2 Ab not detected.A test result that is nonreactive does not exclude thepossibility of exposure to or infection with HIV-1 and/orHIV-2. Nonreactive results in this assay for individualswith prior exposure to HIV-1 and/or HIV-2 may be due toantigen and antibody levels that are below the limit ofdetection of this assay.[employer] HIV Ag/Ab Combo assay result andsupplemental assay results should be interpreted inconjunction with the patient's clinical presentation,history and other laboratory results. If the results areinconsistent with clinical evidence, additional testing issuggested to confirm the result. Blood Venous blood specimen / Unknown 03/15/2025 8:06 AM EDT 03/15/2025 10:13 AM EDT Cesar Jones MD LAB BLOOD ORDERABL ES Final Result [facility] [address] [place] [phone] * Hemoglobin A1c (03/15/2025 8:06 AM EDT) Pathologist [facility] Hemoglobin A1c 5.6 <6.0 % [facility] Comment:Hemoglobin A1C Refer ence Range Adults: 4.8 - 6.0 % Non diabetic: < 6.0 % Goal: < 7.0 %Additional Action Suggested: > 8.0 %Note: Hemoglobin A1c results are invalid for patients with abnormal amounts of HbF. Blood transfusions may impact the HbA1c concentration in the patient sample. Estimated Average Glucose 114 mg/dL [facility] Comment:eAG = Estimated ave rage glucose which is %A1C expressed asaverage glucose, using the formula of the T2O-HdiwqwuMnrkbro Glucose study (ADAG), Diabetes Care, Vol.31,#8,Mar. 2007 Blood Venous blood specimen / Unknown 03/15/2025 8:06 AM EDT 03/15/2025 10:13 AM EDT Cesar Jones MD LAB BLOOD ORDERABL ES Final Result [facility] [address] [place] [phone] * (ABNORMAL) Lipid Panel, Standard (03/15/2025 8:06 AM EDT) Triglycerides 118 <150 mg/dL [facility] Comment:Desirable Triglyceri de: less than 150 mg/dLBorderline High Triglyceride 150-199 mg/dLHigh Triglyceride: 200-499 mg/dLVery High Triglyceride: greater than or equal to 5OO mg/dL Cholesterol 161 <200 mg/dL [facility] Comment:Desirable Cholestero l: less than 200 mg/dLBorderline High Cholesterol: 200-239 mg/dLHigh Cholesterol: greater than 239 mg/dL LDL Cholesterol Calculated 108(H) <100 mg/dL [facility] Comment:Desirable LDL: less than 100 mg/dLNear Optimal/Above Optimal LDL: 110- 129 mg/dLBorderline High LDL: 130-159 mg/dLHigh LDL: 160-189 mg/dLVery High LDL: greater than or equal to 190 mg/dL HDL Cholesterol 30(L) >40 mg/dL [facility] Comment:Desirable HDL: great er than 40 mg/dL Note: This HDL assay may give artificially low results in patients with liver disease. Blood Venous blood specimen / Unknown 03/15/2025 8:06 AM EDT 03/15/2025 10:13 AM EDT us Cesar Jones MD LAB BLOOD ORDERABL ES Final Result [facility] [address] [place] [phone] * (ABNORMAL) Comprehensive Metabolic Panel (03/15/2025 8:06 AM EDT) Sodium 138 135 - 145 mmol/L [facility] Potassium 5.3(H) 3.3 - 5.1 mmol/L [facility] Chloride 107 96 - 108 mmol/L [facility] Carbon Dioxide 28 22 - 29 mmol/L [facility] Anion Gap 8(L) 12 - 20 [facility] Urea Nitrogen (BUN) 11 9 - 16 mg/dL [facility] Creatinine, Serum 1.29 0.5 - 1.4 mg/dL [facility] Estimated Glomerular Filt Rate 58 [facility] Comment:Chronic Kidney Disea se: Estimated GFR < 60 mL/min/1.32s3Dlyosz Kidney Disease: Estimated GFR < 15 mL/min/1.73m2 Glucose 94 60 - 115 mg/dL [facility] Calcium 9.4 8.4 - 10.2 mg/dL [facility] Bilirubin, Total 0.4 0.0 - 1.0 mg/dL [facility] Aspartate Amino Transferase 36 5 - 37 U/L [facility] Alanine Aminotransferase 42(H) 0 - 40 U/L [facility] Total Protein 7.7 6.5 - 8.0 g/dL [facility] Albumin Level 4.6 3.5 - 5.0 g/dL [facility] Alkaline Phosphatase 67 39 - 117 U/L [facility] Blood Venous blood specimen / Unknown 03/15/2025 8:06 AM EDT 03/15/2025 10:13 AM EDT Cesar Jones MD LAB BLOOD ORDERABL ES Final Result [facility] [address] [place] [phone] * (ABNORMAL) Cologuard?? colon cancer screening (01/21/2025 9:40 AM EDT) Cologuard Result Positive( A) Negative 01/26/2025 5:14 AM EDT [facility] (CLIA #:[id number]) Comment: The Cologuard (TM) test was performed on this specimen. POSITIVE TEST RESULT. A positive Cologuard result should be followed with a colonoscopy or visual examination of the colon. The normal value (reference range) for this assay is negative. TEST DESCRIPTION: Composite algorithmic analysis of stool DNA-biomarkers with hemoglobin immunoassay. Quantitative values of individual biomarkers are not [...] Song. et al, N Engl J Med 2014;370(14):7122-7451.) Cologuard may produce a false negative or false positive result (no colorectal cancer or precancerous polyp present at colonoscopy follow up). A negative Cologuard test result does not guarantee the absence of CRC or advanced adenoma (pre-cancer). The current Cologuard screening interval is every 3 years. ([place] [employer] and U.S. Multi-Society Task Force). Cologuard performance data in a 10,000 patient pivotal study using colonoscopy as the reference method can be accessed at the following location: [email or web address]. Additional description of the Cologuard test process, warnings and precautions can be found at [email or web address]. Stool specimen (specimen) Rectal contents / Unknown 01/21/2025 9:40 AM EDT 01/22/2025 10:27 PM EDT us Cesar Jones MD LAB MOLECULAR DIAG NOSTICS ORDERABLES Final Result [facility] (CLIA #:[id number]) [address] [place] [address], from Last 3 Months or Most Recently Relevant to Health Maintenance Insurance [facility] 2 Care Teams Food Safety Director Relationship Specialty Start Date End Date Cesar Drummond MD [address] [place] [phone] PCP - General Internal Medicine 01/03/25
--- OUTSIDE RECORDS SUMMARY | 2025-06-15 10:56 | XMS_ITS | Clinical Summary ---
Author Organization [facility] Address [address] [place] [address] Phone Care Team Providers Care Perinatal Specialist Name Role Phone Physician, Pcp Unknown Primary Care Provider Sandee vailable Allergies No known active allergies Medical History Medical History Date Comments Hypertension [...] Health Maintenance Due Date Last Done Comments Colorectal Cancer Screening: Colonoscopy 1972 DTaP,Tdap,and Td Vaccines (1 - Tdap) 1991 Hepatitis B Vaccines (1 of 3 - 19+ 3-dose series) 1991 Pneumococcal Vaccine: 50+ Ye ars (1 of 1 - PCV) 2022 Zoster Vaccines (1 of 2) 2022 Depression Screening 08/31/2024 Cholesterol Screening (Lipid Panel) 02/14/2025 HIV Screening 02/14/2025 Hepatitis C Screening 02/14/2025 Social Influencers of Health Screening 02/14/2025 COVID-19 Vaccine (1 - 4-2 5 season) 2025 Influenza Vaccine (#1) 2025 RSV Immunization Adult Patie nts (1 - 1-dose 75+ series) 2047 HIB [...] on patient's age to complete this topic Insurance [facility] Care Teams Perinatal Specialist Relationship Specialty Start Date End Date Physician, Pcp Unknown PCP - General 02/14/25
== END 2025-06-15 10:43 | disposition home or self-care (01) ==
LOC: HO.HGI 09:32
PROVIDERS: PCP Internal Medicine; Visit Provider Nurse Practitioner
DX: Z01.818 Encounter for other preprocedural examination (principal); Z12.11 Encounter for screening for malignant neoplasm of colon; R19.5 Other fecal abnormalities
CPT/HCPCS: 99203

== ENCOUNTER → 2025-06-15 09:32 | Outpatient (BNVA) | payer OTHER, SELFPAY | PROVIDERS: PCP Internal Medicine; Visit Provider Nurse Practitioner | DX: Z01.818 Encounter for other preprocedural examination (principal); R19.5 Other fecal abnormalities | CPT/HCPCS: 99202 ==